=== PATIENT | male | born 1975 ===

== ENCOUNTER 2020-10-09 23:23 | Emergency (ER) | payer SELFPAY ==
[~2020-10-09] VITALS: Ht 175.3 cm; Wt 87.0 kg
[2020-10-09 23:30] VITALS: BP 164/94
--- NOTE | 2020-10-09 23:35 | NUR ---
Patient BIBA c/o all extremity joint pain. Patient states he is being evaluated right now for RA. Patient has had this "flare up" before. EMS admin 600mg Ibuprofen PO. Patient states he takes (2-4) 500mg tabs of Ibuprofen daily. Patient is in NAD. Respirations even and unlabored.
--- NOTE | 2020-10-10 00:19 | NUR ---
PT GIVEN DISCHARGE INSTRUCTIONS. PT SAID HE CANT WALK BUT PT ABLE TO AMBULATE PER PA. SECURITY CALLED TO ASSIST WITH DISCHARGE
== END 2020-10-10 00:24 | disposition home or self-care (01) ==
LOC: ED 10-10 00:10
DX: F10.129 Alcohol abuse with intoxication, unspecified (principal); G89.29 Other chronic pain; M79.672 Pain in left foot; M79.671 Pain in right foot; F15.10 Other stimulant abuse, uncomplicated; F17.210 Nicotine dependence, cigarettes, uncomplicated; Z72.9 Problem related to lifestyle, unspecified; Y90.0 Blood alcohol level of less than 20 mg/100 ml
CPT/HCPCS: 99406